=== PATIENT | female | born 1985 | race Caucasian/White ===

== ENCOUNTER 2016-09-06 15:01 | Inpatient (IN) | payer MEDICAID ==
[~2016-09-06] VITALS: Ht 157.5 cm; Wt 50.4 kg
[~2016-09-06 15:01] MED LIST: BENZ0.5T6 PO; HALO5 PO; HYDR-4031 PO; RISP.5 PO
[2016-09-06 16:09] LABS: BASOPHILS % (AUTO) 0.3 % (0.0-2.0); EOSINOPHILS % (AUTO) 1.2 % (1.0-6.0); HEMATOCRIT 29.9 % (36-46); HEMOGLOBIN 9.9 g/dL (12.0-16.0); LYMPHOCYTES # (AUTO) 1.7 K/uL (1.0-4.8); LYMPHOCYTES % (AUTO) 27.6 % (22.0-44.0); MEAN CORPUSCULAR HEMOGLOBIN 24.2 pg (26.0-34.0); MEAN CORPUSCULAR HGB CONC 33.2 G/dL (31.0-37.0); MEAN CORPUSCULAR VOLUME 73 fL (80-100); MONOCYTES # (AUTO) 0.6 K/uL (0.1-1.0); MONOCYTES % (AUTO) 10.5 % (2.0-9.0); NEUTROPHILS # (AUTO) 3.7 K/uL (1.8-7.7); NEUTROPHILS % (AUTO) 60.4 % (40.0-70.0); PLATELET COUNT (AUTO) 222 K/uL (150-450); RED BLOOD CELL COUNT(AUTO) 4.09 MIL/uL (4.00-5.20); RED CELL DISTRIBUTION WIDTH 18.4 % (11.5-14.5); WHITE BLOOD COUNT (AUTO) 6.1 K/uL (4.5-11.0)
[2016-09-06 16:13] LABS: ANION GAP 8 mmol/L (8-16); CALCIUM, TOTAL 8.9 mg/dL (8.8-10.5); CARBON DIOXIDE 27 mmol/L (22-29); CHLORIDE 104 mmol/L (98-107); GLOMERULAR FILTR. RATE CALC > 60 mL/min (>60); POTASSIUM 3.8 mmol/L (3.5-5.1); SODIUM SERUM 139 mmol/L (136-145); UREA NITROGEN, BLOOD 10 mg/dL (7-18)
[2016-09-06 16:18] LABS: ALANINE AMINOTRANSFERASE 32 U/L (12-78); ALBUMIN 3.5 g/dL (3.4-5.0); ASPARTATE AMINOTRANSFERASE 28 U/L (15-37); BILIRUBIN,TOTAL 0.4 mg/dL (0.1-1.0); TOTAL PROTEIN, SERUM 6.9 g/dL (6.4-8.2)
[2016-09-06 16:37] LABS: RBC MORPHOLOGY COMMENT ABNORMAL RBC MORPH
[2016-09-06] MEDS ORDERED: ZOLPIDEM TARTRATE 10 MG TABLET PO PRN (17:30)
[2016-09-06] MEDS ORDERED: HALOPERIDOL 5 MG TABLET PO PRN (17:30)
[2016-09-06] MEDS ORDERED: LORazepam 2 MG TABLET PO PRN (17:30)
[2016-09-06] MEDS: HALOPERIDOL 5 MG TABLET PO SCH (20:48)
[2016-09-06] MEDS: BENZTROPINE MESYLATE 0.5 MG TABLET PO SCH (20:48)
[2016-09-06 20:52] VITALS: BP 112/71
[2016-09-07 00:03] VITALS: BP 115/74
[2016-09-07] MEDS: HALOPERIDOL 5 MG TABLET PO SCH ×2 (08:34→16:08)
[2016-09-07] MEDS: BENZTROPINE MESYLATE 0.5 MG TABLET PO SCH ×2 (08:35→16:08)
[2016-09-07 08:52] LABS: CHOL/HDL RATIO 2.3 (3.9-5.7)
[2016-09-07 16:13] VITALS: BP 106/68
[2016-09-08 05:22] VITALS: BP 103/70
[2016-09-08] MEDS: HALOPERIDOL 5 MG TABLET PO SCH ×2 (08:20→16:14)
[2016-09-08] MEDS: BENZTROPINE MESYLATE 0.5 MG TABLET PO SCH ×2 (08:20→16:14)
[2016-09-08 08:33] VITALS: BP 103/64
[2016-09-08 16:40] VITALS: BP 108/63
[2016-09-09 06:58] VITALS: BP 111/76
[2016-09-09 08:29] VITALS: BP 105/65
[2016-09-09] MEDS: HALOPERIDOL 5 MG TABLET PO SCH ×2 (08:40→16:09)
[2016-09-09] MEDS: BENZTROPINE MESYLATE 0.5 MG TABLET PO SCH ×2 (08:40→16:10)
[2016-09-09 08:56] LABS: HEMOGLOBIN A1C 5.7 % (4.5-6.2)
[2016-09-09 09:39] LABS: CHOL/HDL RATIO 2.6 (3.9-5.7); THYROID STIMULATING HORMONE 2.43 uIU/mL (0.36-3.74)
[2016-09-09 16:14] VITALS: BP 118/72
[2016-09-10 03:29] VITALS: BP 102/60
[2016-09-10] MEDS: BENZTROPINE MESYLATE 0.5 MG TABLET PO SCH ×2 (08:16→16:27)
[2016-09-10] MEDS: HALOPERIDOL 5 MG TABLET PO SCH ×2 (08:16→16:27)
[2016-09-10 08:20] VITALS: BP 102/60
[2016-09-10 16:10] VITALS: BP 112/66
[2016-09-11 04:40] VITALS: BP 108/63
[2016-09-11 08:14] VITALS: BP 107/62
[2016-09-11] MEDS: BENZTROPINE MESYLATE 0.5 MG TABLET PO SCH ×2 (08:15→16:54)
[2016-09-11] MEDS: HALOPERIDOL 5 MG TABLET PO SCH ×2 (08:15→16:54)
== END 2016-09-11 17:25 | disposition home or self-care (01) | DRG 753 ==
LOC: EMS 15:04 → B3A 18:02
PROVIDERS: ADMIT Psychiatry & Neurology Psychiatry; ATTEND Psychiatry & Neurology Psychiatry
DX: F31.2 Bipolar disorder, current episode manic severe with psychotic features (principal); R45.851 Suicidal ideations; D64.9 Anemia, unspecified; F22 Delusional disorders; F41.9 Anxiety disorder, unspecified; Z82.5 Family history of asthma and other chronic lower respiratory diseases
CPT/HCPCS: 83036; 84439; 84443; 87081; 99285; G0480